=== PATIENT | male | born 1995 ===

== ENCOUNTER 2022-04-19 16:34 | Emergency (ER) | payer SELFPAY ==
[2022-04-19 18:32] LABS: ACETAMINOPHEN <2.0 ug/mL; BLOOD UREA NITROGEN,BUN 7 mg/dL (7.0-18.0); CARBON DIOXIDE,CO2 30.2 mmol/L (21.0-32.0); CHLORIDE,CL 104 mmol/L (98-107); GLUCOSE RANDOM 105 mg/dL (74-106); POTASSIUM,K 3.9 mmol/L (3.5-5.1); SODIUM,NA 144 mmol/L (136-148)
[2022-04-19 18:42] LABS: ESTIMATED GFR 106 mL/min (>60)
== END 2022-04-19 19:29 | disposition home or self-care (01) ==
LOC: MW.ED 16:34
DX: F10.920 Alcohol use, unspecified with intoxication, uncomplicated (principal); F32.A Depression, unspecified; Z20.822 Contact with and (suspected) exposure to COVID-19
CPT/HCPCS: 36415; 80053; 80143; 80179; 80305-QW; 80307; 81001; 83735; 84443; 85025; 93005; 99285; U0002

== ENCOUNTER 2022-04-25 00:58 | Emergency (ER) | payer SELFPAY ==
[2022-04-25 01:46] LABS: CARBON DIOXIDE,CO2 20.9 mmol/L (21.0-32.0)
[2022-04-25] MEDS ORDERED: LORazepam 2 MG/ML SDV IVPUSH ONE (01:47)
[2022-04-25] MEDS ORDERED: HYDROmorphone 2 MG/ML Syringe IVPUSH ONE (01:47)
[2022-04-25 01:48] LABS: POTASSIUM,K 2.4 mmol/L (3.5-5.1)
[2022-04-25] MEDS ORDERED: Adenosine 6 MG/2 ML SDV ONE (01:56)
[2022-04-25] MEDS ORDERED: Potassium Chloride 10% 20 MEQ/15 ML Soln 30 ML UD Cup PO STA (02:14)
[2022-04-25] MEDS ORDERED: Magnesium Chloride 64 MG Tab.ER PO STA (02:23)
[2022-04-25] MEDS: Potassium Chloride 100 ML IV SCH ×2 (02:24→04:58)
[2022-04-25] MEDS ORDERED: Calcium Gluconate 10% 1 GM/10 ML SDV IVPUSH STA (03:10)
[2022-04-25 05:16] LABS: CARBON DIOXIDE,CO2 21.7 mmol/L (21.0-32.0); POTASSIUM,K 4.8 mmol/L (3.5-5.1)
[2022-04-25] MEDS ORDERED: Enoxaparin 60 MG/0.6 ML Syringe SUBCUT STA (06:19)
[2022-04-25] MEDS ORDERED: Amiodarone 150 MG in Dextrose 5% in Water 100 ML IV ONE ×2 (10:08)
[2022-04-25] MEDS ORDERED: Amiodarone In Dextrose,Iso-Osm 150 MG in Premix Bag 1 BAG IV SCH ×2 (10:30)
[2022-04-25] MEDS ORDERED: Amiodarone In Dextrose,Iso-Osm 150 MG in Premix Bag 1 BAG IV ONE ×2 (10:30)
== END 2022-04-25 10:05 ==
LOC: MW.ED 00:58
DX: R00.0 Tachycardia, unspecified (principal); M54.9 Dorsalgia, unspecified; E87.6 Hypokalemia; E83.42 Hypomagnesemia; E83.52 Hypercalcemia; Z20.822 Contact with and (suspected) exposure to COVID-19
CPT/HCPCS: 36415; 80048; 80053; 80305; 83735; 84439; 84443; 84481; 84484; 85025; 87635; 93005; 96365; 96366; 96372; 96375; 99285; A9270; J0610; J1170; J1650; J2060; J3480; U0002